=== PATIENT | male | born 1980 | race African-American/Black ===

== ENCOUNTER 2017-11-01 13:41 | Emergency (ER) | payer SELFPAY ==
[2017-11-01] MEDS ORDERED: Ketorolac Tromethamine 30 MG/ML VIAL ONE (15:58)
--- NOTE | 2017-11-01 16:03 | RAD ---
RIGHT CLAVICLE 2 VIEWS: History Pain. COMPARISON: None. FINDINGS: There is no acute fracture. No malalignment. There are some erosive changes of the distal right cla vicle. IMPRESSION: 1. No acute fracture or malalignment. 2. Some erosive changes of the clavicle may be sequelae of prior injury, distal clavicular osteolysi s. POS: [facility]
== END 2017-11-01 16:25 | disposition home or self-care (01) ==
LOC: ERS 13:41
DX: S40.011A Contusion of right shoulder, initial encounter (principal); F41.9 Anxiety disorder, unspecified; F32.9 Major depressive disorder, single episode, unspecified; Z87.891 Personal history of nicotine dependence; V44.6XXA Car passenger injured in collision with heavy transport vehicle or bus in traffic accident, initial encounter
CPT/HCPCS: 96372; J1885